=== PATIENT | male | born 1950 | race African-American/Black ===

== ENCOUNTER 2019-09-02 10:14 | Outpatient (CLI) | payer MEDICARE ==
--- NOTE | 2019-09-02 10:52 | MMO ---
Bilateral MAMMO Bilat Diag [facility]. CLINICAL HISTORY: Patient is 69 years old and is seen for diagnostic exam and lump or thickening in the right breast. The patient has no family history of breast cancer. The patient has no personal history of cancer. VIEWS: The views performed were: bilateral craniocaudal with tomosynthesis; bilateral mediolateral oblique with tomosynthesis; and bilateral mediolateral with tomosynthesis. FILMS COMPARED: The present examination has been compared to a prior imaging study performed at [facility] on 09/02/2019. This study has been interpreted with the assistance of computer-aided detection. MAMMOGRAM FINDINGS: There is a small amount of fibroglandular tissue in the right retroaerolar breast consistent with gynecomastia. US shows no mass. Benign calcifications are noted bilaterally. A loop recorder is seen on the left. There are no suspicious masses, suspicious calcifications, or new areas of architectural distortion. IMPRESSION: THERE IS NO MAMMOGRAPHIC EVIDENCE OF MALIGNANCY. THE RESULTS OF THIS EXAM WERE SENT TO THE PATIENT. ACR BI-RADS Category 2 - Benign finding MAMMOGRAPHY NOTE: 1. A negative mammogram report should not delay a biopsy if a dominant of clinically suspicious mass is present. 2. Approximately 10% to 15% of breast cancers are not detected by mammography. 3. Adenosis and dense breasts may obscure an underlying neoplasm. Reported by: GAURANG PUCKETT MD Electonically Signed: [id number]
--- NOTE | 2019-09-02 12:22 | ULT ---
RIGHT BREAST ULTRASOUND: Date: 09/02/2019 HISTORY: 69-year-old male with palpable abnormality in the retroareolar region of the right breast. FINDINGS: Correlation is made with mammograms from same date. No mass is seen in the region of the palpable abnormality in the retroareolar aspect of the right gary ast. IMPRESSION: BI-RADS Category 2 - Benign findings.
== END 2019-09-02 10:15 | disposition home or self-care (01) ==
LOC: BICMAMMO 10:14
PROVIDERS: ATTEND Family Medicine
DX: N63.10 Unspecified lump in the right breast, unspecified quadrant (principal); R92.8 Other abnormal and inconclusive findings on diagnostic imaging of breast
CPT/HCPCS: 76642; 77066; G0279

== ENCOUNTER 2019-10-14 01:54 | Emergency (ER) | payer MEDICARE ==
[2019-10-14 03:02] LABS: Bilirubin Negative (Negative); Blood, Urine Negative (Negative); Clarity Clear (Clear); Glucose, Urine (Dipstick) Normal (Negative); Leukocyte Negative Leu/uL (Negative); Nitrite Negative (Negative); Protein, Urine (Dipstick) Negative (Neg-Trace); Urobilinogen Normal mg/dL (Less than 2)
== END 2019-10-14 03:30 | disposition home or self-care (01) ==
LOC: ERS 01:54
DX: R33.9 Retention of urine, unspecified (principal); I10 Essential (primary) hypertension; E78.5 Hyperlipidemia, unspecified; Z79.899 Other long term (current) drug therapy; Z79.891 Long term (current) use of opiate analgesic
CPT/HCPCS: 51701; 81003; 87086

== ENCOUNTER 2020-06-20 06:45 | Outpatient (CLI) | payer MEDICARE ==
[2020-06-20 14:23] LABS: Bilirubin Neg (Negative); Blood, Urine Negative (Negative); Clarity Clear (Clear); Glucose, Urine (Dipstick) Normal (Negative); Ketone, Urine 5 mg/dL (Negative); Leukocyte 25 (Negative); Nitrite Negative (Negative); Protein, Urine (Dipstick) 15 mg/dl (Neg-Trace); Specific Gravity, Urine 1.025 (1.002-1.036)
[2020-06-20 14:24] LABS: #Eosinphils 0.1 10x3/uL (0.0-0.5); #Monocytes 0.5 10x3/uL (0.0-1.1); #Neutrophils 2.4 10x3/uL (1.5-8.4); %Basophils 0.5 % (0.0-2.0); %Eosinophils 2.9 % (0.0-6.0); %Lymphocytes 19.4 % (18.0-47.0); %Monocytes 13.8 % (0.0-10.0); %Neutrophils 62.6 % (40.0-75.0); Hemoglobin 10.9 g/dL (14.0-18.0); Mean Corpuscular Hemoglobin 27.8 PG (27.0-33.0); Mean Corpuscular Volume 84.2 fl (80.0-100.0); Mean Platelet Volume 10.5 fl (7.4-10.4); Platelet Count 197 10x3/uL (130-400); RBC Distribution Width 14.2 % (11.5-14.5); Red Blood Cell (RBC) Count 3.92 10x6/uL (4.40-5.80); White Blood Cell (WBC) Count 3.8 10x3/uL (4.5-11.0)
[2020-06-20 14:36] LABS: Anion Gap 14 mmol/L (10-20); BUN (Urea Nitrogen) 28 mg/dL (8.4-25.7); Calc. Creatinine Clearance 0 mL/min (70-130); Calcium 9.7 mg/dL (7.8-10.44); Carbon Dioxide 22 mmol/L (23-31); Chloride 107 mmol/L (98-107); Glucose 125 mg/dL (80-115); INR-International Normal Ratio 1.1; Prothrombin Time 11.4 sec (9.5-12.1); Sodium 139 mmol/L (136-145)
[2020-06-20 14:38] LABS: Bacteria/HPF Rare-Few HPF (None Seen); Mucous/LPF 1+ LPF (<2+); RBC/HPF 0-3 HPF (0-3)
[2020-06-21 00:18] LABS: SARS-CoV-2 MS2 Positive; SARS-CoV-2 N Gene Negative; SARS-CoV-2 S Gene Negative; SARS-CoV-2 by NAA Not Detected (NotDetected); SARS-CoV-2 orf1ab Negative
== END 2020-06-20 06:46 | disposition home or self-care (01) ==
LOC: LABBT 06:45
PROVIDERS: ATTEND Orthopaedic Surgery
DX: Z01.818 Encounter for other preprocedural examination (principal); M17.0 Bilateral primary osteoarthritis of knee; Z20.828 Contact with and (suspected) exposure to other viral communicable diseases
CPT/HCPCS: 80048; 81001; 85025; 85610; 87081; 93005; U0003; 87635; 93010

== ENCOUNTER 2020-08-13 05:34 | Day surgery (SDC) | payer MEDICARE ==
[2020-06-19 12:19] VITALS: BMI 33.0
[2020-08-13] MEDS ORDERED: Bupivacaine PF 0.5% 30 ML VIAL ONE (06:30)
[2020-08-13] MEDS ORDERED: methylPREDNISolone Acetate 40 mg/ml Vial ONE (06:30)
[2020-08-13] MEDS ORDERED: Lidocaine 1% (PF) 30 ML VIAL ONE (06:30)
[2020-08-13] MEDS ORDERED: Fentanyl 100 MCG/2 ML VIAL ONE ×3 (06:48→10:08)
[2020-08-13] MEDS ORDERED: Midazolam HCl 2 mg/2 ml Vial ONE (07:01)
[2020-08-13] MEDS ORDERED: Tranexamic Acid 1,000 MG/10 ML VIAL ONE (07:02)
[2020-08-13] MEDS ORDERED: Sodium Chloride 0.9% 0 ML ONE (07:02)
[2020-08-13] MEDS ORDERED: Vancomycin 1.5 GRAM/300 ML BAG ONE (07:03)
[2020-08-13] MEDS ORDERED: Sodium Chloride 0.9% 100 ML ONE (07:03)
[2020-08-13] MEDS ORDERED: Ondansetron PF 4 MG/2 ML Vial IVP PRN ×2 (07:14→07:45)
[2020-08-13] MEDS ORDERED: diphenhydrAMINE 25 MG CAP PO PRN (07:14)
[2020-08-13] MEDS ORDERED: Zolpidem Tartrate 5 MG TAB PO PRN ×2 (07:14→07:45)
[2020-08-13] MEDS ORDERED: HYDROcodone/Acetaminophen 10/325 mg Tablet PO PRN ×3 (07:14→07:45)
[2020-08-13] MEDS ORDERED: Acetaminophen 325 MG TAB PO PRN (07:14)
[2020-08-13] MEDS ORDERED: Promethazine HCl 25 MG/ML VIAL IM PRN ×2 (07:14→07:45)
[2020-08-13] MEDS ORDERED: traMADol HCl 50 MG TAB PO PRN ×2 (07:14→07:45)
[2020-08-13] MEDS ORDERED: Fentanyl 100 MCG/2 ML VIAL SLOW IVP PRN (07:14)
[2020-08-13] MEDS ORDERED: Tranexamic Acid 1,000 MG in Sodium Chloride 0.9% 100 ML IVPB SCH (07:15)
[2020-08-13] MEDS ORDERED: traZODone HCl 50 MG TAB PO PRN (07:33)
[2020-08-13] MEDS ORDERED: Ropivacaine HCl/PF 250 ML in Premix Bag 1 BAG NERVE BLCK SCH (07:45)
--- NOTE | 2020-08-13 09:51 | OP ---
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 PREOPERATIVE DIAGNOSIS: Bilateral knee arthritis, left worse than right. POSTOPERATIVE DIAGNOSIS: Bilateral knee arthritis, left worse than right. PROCEDURES: 1. Left total knee replacement done using Gayathri pinless navigation. 2. Right knee corticosteroid injection. ANESTHESIA: General anesthetic. BLOOD LOSS: Minimal. COMPLICATIONS: None. TOURNIQUET TIME: DISPOSITION: Recovery room in stable condition. IMPLANTS: To the left knee include a Gayathri Triathlon total knee. The femur was a size 6 cruciate retaining femur. We used a size 6 primary tibial baseplate. We used a 6 x 9 mm CS-X3 tibial poly and a 29 x 9 X3 patella. He did go to recovery room in stable condition. INDICATIONS: Mr. Hollis is a very active male, who comes in complaining of years of bilateral knee pain with the left being worse than the right. He has tried all nonoperative treatment to include injections, physical therapy, oral medicines, and unfortunately has failed all of these. At this time, he wished to have the left knee replaced and the right knee injected under anesthesia so he could get some temporary relief postop. PROCEDURE IN DETAIL: After all appropriate consent forms were explained and signed, Mr. Hollis was taken back to the operating room and at this time was given general anesthetic. Once the level of anesthesia was appropriate, the right knee was cleaned off with alcohol and a mixture of 80 mg of Depo-Medrol with local was injected into the right knee without complication. A Band-Aid was applied. We then turned our attention to the left lower extremity. After all appropriate consent forms were explained and signed, the patient was taken back to the operating room and at this time was given general anesthetic. Once the level of anesthesia was appropriate, a well-padded tourniquet was placed on the left leg, and the leg was then prepped and draped in standard surgical fashion. The limb was exsanguinated and tourniquet taken up to 300 mmHg. Midline incision was made with a 10 blade down through the skin and subcutaneous tissue. Bovie electrocautery was used to coagulate any brisk venous bleeding. A new blade was used to make a medial parapatellar arthrotomy. Small subperiosteal release was performed medially and excess fat pad was removed. The knee was flexed up to gain access to the femur. The femur was navigated and distal femoral resection was made. Epicondylar access was used to align our sizing jig and this was pinned in place. We sized our femur to be a 6 cruciate retaining femur. 4:1 cutting block was applied and pinned. Anterior and posterior chamfer cuts were then made. We navigated out our proximal tibia and made our proximal tibial resection. Spreaders were used to remove any posterior osteophytes off the back of the femur as well as remaining meniscal tissue. A long alignment josé miguel was then used to achieve correct rotation of our tibial baseplate and a size 6 was chosen. This was pinned in place. We trialed the polyethylene and a 6 x 9 mm CS-X3 polyethylene gave us full extension and good stability throughout range of motion. Two towel clips and a saw were used to cut our patella. Three lug nuts were drilled and 29 x 9 X3 patella was trialed which sat nicely in the trochlear groove. We then drilled our femur and punched our tibia. All components were removed. The knee was thoroughly irrigated and dried. Cement was mixed into the cement gun on the back table. Components were then placed. The knee was held out in full extension until the cement had dried. All excess bone cement was removed. Multiple #2 Vicryl stitches as well as a Quill were used to close our extensor mechanism. 0 Quill followed by a running Monoderm was then used to close the skin. Surgicel glue was then used on the skin. Once this had dried, soft tissue dressing was applied to the limb, tourniquet was let down, and the toes pinked up nicely. The patient was then awakened and taken to the recovery room in stable condition. All counts were correct at the end of the case. The patient did receive preoperative IV antibiotics. Job ID: [id number]
[2020-08-13] MEDS ORDERED: Glycopyrrolate 0.2 MG/ML 5 ML SYRINGE ONE (10:43)
[2020-08-13] MEDS ORDERED: ePHEDrine 50 MG/ML VIAL ONE (10:43)
[2020-08-13] MEDS ORDERED: PROPOFOL 200 MG/20 ML VIAL ONE (10:43)
[2020-08-13] MEDS ORDERED: Ropivacaine 2% HCl/PF (20 MG/10 ML VIAL) ONE (10:43)
[2020-08-13] MEDS ORDERED: Ondansetron PF 4 MG/2 ML Vial ONE (10:43)
[2020-08-13] MEDS ORDERED: Rocuronium Bromide 10 MG/ML (10ML VIAL) ONE (10:43)
[2020-08-13] MEDS ORDERED: Dexamethasone 20 MG/5 ML VIAL ONE (10:43)
[2020-08-13] MEDS ORDERED: Bupivacaine HCl 0.5%/Epinephrine 1:200,000/PF 30 ml Vial ONE (10:43)
[2020-08-13] MEDS ORDERED: Ketorolac Tromethamine 30 MG/ML VIAL IVP SCH (12:00)
[2020-08-13] MEDS: Fentanyl 100 MCG/2 ML VIAL IV PRN (12:38)
[2020-08-13] MEDS: Sodium Chloride 0.9% 1,000 ML IV SCH ×2 (12:59→21:45)
[2020-08-13] MEDS: Amlodipine 10 MG TAB PO SCH (13:00)
[2020-08-13] MEDS: Carvedilol 25 MG TAB PO SCH ×2 (13:00→21:39)
[2020-08-13] MEDS: Aspirin 81 mg Enteric Coated Tablet PO SCH ×2 (13:00→21:39)
[2020-08-13] MEDS: Amiodarone 200 MG TAB PO SCH (13:00)
[2020-08-13] MEDS: CeleCOXIB 100 MG CAP PO SCH (13:10)
[2020-08-13] MEDS: Oxybutynin 5 MG TAB PO SCH ×2 (13:11→21:41)
[2020-08-13] MEDS: Senokot S 8.6-50 MG TAB PO SCH ×2 (13:11→21:39)
[2020-08-13] MEDS: Losartan 25 MG TAB PO SCH (13:11)
[2020-08-13] MEDS: Multivitamin W/ Minerals 1 TAB PO SCH (13:11)
[2020-08-13] MEDS: Tamsulosin HCl 0.4 MG CAP PO SCH (13:11)
[2020-08-13] MEDS: Ferrous Gluconate 324 MG TAB PO SCH ×2 (13:11→21:39)
[2020-08-13] MEDS: CEFAZOLIN 2 GM in Premix Bag 1 BAG IVPB SCH ×2 (15:07→23:32)
[2020-08-13] MEDS: HYDROcodone/Acetaminophen 10/325 mg Tablet PO PRN ×2 (17:14→23:32)
[2020-08-13] MEDS ORDERED: Vancomycin 1.5 GRAM/300 ML BAG 1.5 GM in Premix Bag 1 BAG IVPB SCH (19:00)
[2020-08-13] MEDS ORDERED: Vancomycin HCl 1.5 GM in Sodium Chloride 0.9% 250 ML 300 ML IVPB SCH (19:00)
[2020-08-13] MEDS: traMADol HCl 50 MG TAB PO PRN (20:58)
[2020-08-13] MEDS: Atorvastatin Calcium 40 MG TAB PO SCH (21:40)
[2020-08-14] MEDS: hydrALAZINE 20 MG/ML VIAL SLOW IVP PRN ×2 (00:41→11:33)
[2020-08-14] MEDS: HYDROcodone/Acetaminophen 10/325 mg Tablet PO PRN (06:03)
[2020-08-14] MEDS: Sodium Chloride 0.9% 1,000 ML IV SCH ×3 (06:14→23:18)
[2020-08-14 06:16] LABS: Hemoglobin 10.3 g/dL (14.0-18.0); Mean Corpuscular HGB CONC 33.8 g/dL (32.0-36.0); Mean Corpuscular Hemoglobin 28.4 pg (27.0-31.0); Mean Corpuscular Volume 84.1 fL (78.0-98.0); Mean Platelet Volume 7.8 fL (7.4-10.4); Platelet Count 190 thou/uL (130-400); RBC Distribution Width 13.2 % (11.5-14.5); Red Blood Cell (RBC) Count 3.61 mill/uL (4.70-6.10); White Blood Cell (WBC) Count 8.2 thou/uL (4.8-10.8)
[2020-08-14] MEDS: CeleCOXIB 100 MG CAP PO SCH (07:45)
[2020-08-14] MEDS: traMADol HCl 50 MG TAB PO PRN (07:45)
[2020-08-14] MEDS: Senokot S 8.6-50 MG TAB PO SCH ×2 (07:46→20:59)
[2020-08-14] MEDS: Carvedilol 25 MG TAB PO SCH ×2 (07:47→20:26)
[2020-08-14] MEDS: Tamsulosin HCl 0.4 MG CAP PO SCH (07:47)
[2020-08-14] MEDS: Losartan 25 MG TAB PO SCH (07:47)
[2020-08-14] MEDS: Amlodipine 10 MG TAB PO SCH (07:48)
[2020-08-14] MEDS: Multivitamin W/ Minerals 1 TAB PO SCH (07:48)
[2020-08-14] MEDS: Oxybutynin 5 MG TAB PO SCH ×2 (07:48→20:26)
[2020-08-14] MEDS: Ferrous Gluconate 324 MG TAB PO SCH ×2 (07:48→20:26)
[2020-08-14] MEDS: Amiodarone 200 MG TAB PO SCH (07:48)
[2020-08-14] MEDS: Aspirin 81 mg Enteric Coated Tablet PO SCH ×2 (07:49→20:26)
--- NOTE | 2020-08-14 08:27 | PRG ---
DATE OF SERVICE: 08/14/2020 SUBJECTIVE: Kerwin is a 70-year-old male postop day 1 from a left total knee arthroplasty. He is doing relatively well. He does complain of pain. OBJECTIVE: VITAL SIGNS: Temperature 98.1, pulse 72, respiratory rate 14 and nonlabored, blood pressure is 177/83. GENERAL: He is alert and oriented to person, place, time, and situation. Responsive and appropriate with examiner. EXTREMITIES: Incision is clean without any erythema or strikethrough. He is neurovascularly intact in left lower extremity. LABORATORY DATA: Hemoglobin and hematocrit 10.3 and 30.3. IMPRESSION: A 70-year-old male postop day 1 left total knee arthroplasty, doing well except with some pain. PLAN: We will go in dosing with some Ultram now, make adjustments to his pain pump if needed. Re-consult the pain service for evaluation. Continue to observe for hemorrhage. Job ID: [id number]
[2020-08-14] MEDS: Fentanyl 100 MCG/2 ML VIAL IV PRN (10:30)
[2020-08-14] MEDS ORDERED: fentaNYL Citrate/PF 2,000 MCG in Sodium Chloride 0.9% 60 ML IV PRN (11:00)
[2020-08-14] MEDS: Acetaminophen 500 MG TAB PO SCH ×3 (12:38→23:14)
[2020-08-14] MEDS: Atorvastatin Calcium 40 MG TAB PO SCH (20:26)
[2020-08-15] MEDS: Acetaminophen 500 MG TAB PO SCH (05:24)
[2020-08-15 06:46] LABS: Hemoglobin 9.6 g/dL (14.0-18.0); Mean Corpuscular HGB CONC 33.9 g/dL (32.0-36.0); Mean Corpuscular Hemoglobin 28.7 pg (27.0-31.0); Mean Corpuscular Volume 84.6 fL (78.0-98.0); Mean Platelet Volume 7.8 fL (7.4-10.4); Platelet Count 179 thou/uL (130-400); RBC Distribution Width 13.3 % (11.5-14.5); Red Blood Cell (RBC) Count 3.33 mill/uL (4.70-6.10); White Blood Cell (WBC) Count 8.4 thou/uL (4.8-10.8)
[2020-08-15] MEDS ORDERED: HYDROcodone/Acetaminophen 10/325 mg Tablet PO PRN (08:39)
[2020-08-15] MEDS: Tamsulosin HCl 0.4 MG CAP PO SCH (08:48)
[2020-08-15] MEDS: Senokot S 8.6-50 MG TAB PO SCH (08:48)
[2020-08-15] MEDS: Oxybutynin 5 MG TAB PO SCH (08:49)
[2020-08-15] MEDS: Multivitamin W/ Minerals 1 TAB PO SCH (08:49)
[2020-08-15] MEDS: CeleCOXIB 100 MG CAP PO SCH (08:49)
[2020-08-15] MEDS: Losartan 25 MG TAB PO SCH (08:49)
[2020-08-15] MEDS: Ferrous Gluconate 324 MG TAB PO SCH (08:49)
[2020-08-15] MEDS: Aspirin 81 mg Enteric Coated Tablet PO SCH (08:50)
[2020-08-15] MEDS: Carvedilol 25 MG TAB PO SCH (08:50)
[2020-08-15] MEDS: HYDROcodone/Acetaminophen 10/325 mg Tablet PO PRN ×2 (08:50→13:47)
[2020-08-15] MEDS: Amlodipine 10 MG TAB PO SCH (08:50)
[2020-08-15] MEDS: Amiodarone 200 MG TAB PO SCH (08:50)
[2020-08-15] MEDS: Sodium Chloride 0.9% 1,000 ML IV SCH (09:14)
[2020-08-15 12:13] VITALS: BP 127/68; TEMP 97.8
== END 2020-08-15 14:17 | disposition home or self-care (01) ==
LOC: SDC 05:34 → SJJU 07:14 → SDC 08-15 14:17
PROVIDERS: ATTEND Orthopaedic Surgery
PROC: 3E0U33Z Introduction of Anti-inflammatory into Joints, Percutaneous Approach (ICD-10-PCS; principal; 2020-08-13)
PROC: 0SRD0J9 Replacement of Left Knee Joint with Synthetic Substitute, Cemented, Open Approach (ICD-10-PCS; 2020-08-13)
PROC: 8E0YXBZ Computer Assisted Procedure of Lower Extremity (ICD-10-PCS; 2020-08-13)
DX: M17.0 Bilateral primary osteoarthritis of knee (principal); Z79.899 Other long term (current) drug therapy; Z91.040 Latex allergy status; Z90.49 Acquired absence of other specified parts of digestive tract
CPT/HCPCS: 20610; 20985; 27447; 85027; 97110 ×2; 97116 ×3; 97139 ×4; 97530 ×2; C1713; C1776; J3010; 36415; J0360; J0690; J1100; J1885; J2001; J2250; J2405; J2704; J2795; J2920; J3370; J3490; J7050; S0020

== ENCOUNTER 2022-08-27 09:09 | Outpatient (CLI) | payer MEDICARE | END 2022-08-27 09:10 | disposition home or self-care (01) | LOC: LABBT 09:09 | PROVIDERS: ATTEND Orthopaedic Surgery | DX: Z01.818 Encounter for other preprocedural examination (principal); M17.11 Unilateral primary osteoarthritis, right knee | CPT/HCPCS: 71046; 80048; 81003; 85025; 85610; 86850; 86900; 86901; 87081; 93005; 93010 ==

== ENCOUNTER 2023-02-04 09:12 | Outpatient (CLI) | payer MEDICARE | END 2023-02-04 09:13 | disposition home or self-care (01) | LOC: LABBT 09:12 | PROVIDERS: ATTEND Orthopaedic Surgery | DX: Z01.818 Encounter for other preprocedural examination (principal); M17.11 Unilateral primary osteoarthritis, right knee | CPT/HCPCS: 71046; 93005; 93010 ==

== ENCOUNTER 2023-02-09 06:53 | Observation (INO) | payer MEDICARE ==
[2023-02-04 10:04] VITALS: BMI 33.0
[2023-02-04 10:56] LABS: Bilirubin Neg (Negative); Blood, Urine Negative (Negative); Clarity Clear (Clear); Glucose, Urine (Dipstick) Normal (Negative); Ketone, Urine Negative (Negative); Leukocyte Negative (Negative); Nitrite Negative (Negative); Protein, Urine (Dipstick) 15 mg/dl (Neg-Trace); Urobilinogen Normal mg/dL (Less than 2)
[2023-02-04 11:01] LABS: #Eosinphils 0.1 10x3/uL (0.0-0.5); #Monocytes 0.7 10x3/uL (0.0-1.1); #Neutrophils 2.5 10x3/uL (1.5-8.4); %Basophils 0.2 % (0.0-2.0); %Eosinophils 2.9 % (0.0-6.0); %Lymphocytes 19.3 % (18.0-47.0); %Monocytes 17.1 % (0.0-10.0); Mean Corpuscular HGB CONC 32.4 g/dL (32.0-36.0); Mean Corpuscular Hemoglobin 27.4 pg (27.0-33.0); Mean Corpuscular Volume 84.5 fl (81.2-95.1); Mean Platelet Volume 10.4 fl (7.4-10.4); Platelet Count 192 10x3/uL (150-450); RBC Distribution Width 14.5 % (11.5-14.5); Red Blood Cell (RBC) Count 4.38 10x6/uL (4.32-5.72); White Blood Cell (WBC) Count 4.2 10x3/uL (3.5-10.5)
[2023-02-04 11:14] LABS: Prothrombin Time 10.9 sec (9.5-12.1)
[2023-02-04 11:22] LABS: Anion Gap 15 mmol/L (10-20); BUN (Urea Nitrogen) 22 mg/dL (8.4-25.7); Calc. Creatinine Clearance 0 mL/min (70-130); Calcium 9.3 mg/dL (7.8-10.44); Carbon Dioxide 24 mmol/L (23-31); Chloride 105 mmol/L (98-107); Estimated GFR 68; Glucose 103 mg/dL (83-110); Potassium 3.9 mmol/L (3.5-5.1); Sodium 140 mmol/L (136-145)
[2023-02-09] MEDS ORDERED: Vancomycin (BATCH) 1.5 GRAM/300 ML BAG ONE (07:40)
[2023-02-09] MEDS ORDERED: Tranexamic Acid 1,000 MG/10 ML VIAL ONE ×2 (07:41→13:00)
[2023-02-09] MEDS ORDERED: Sodium Chloride 0.9% 100 ML ONE ×2 (07:41→09:17)
[2023-02-09] MEDS ORDERED: Lidocaine 1% MPF 2 ML VIAL ONE (07:59)
[2023-02-09] MEDS ORDERED: fentaNYL 50 mcg/mL 1 mL Vial ONE ×8 (08:04→12:58)
[2023-02-09] MEDS ORDERED: Midazolam HCl 2 mg/2 ml Vial ONE (08:04)
[2023-02-09] MEDS ORDERED: Bupivacaine PF 0.5% 30 ML VIAL ONE (08:05)
[2023-02-09] MEDS ORDERED: CEFAZOLIN 2 GM VIAL ONE (09:17)
[2023-02-09] MEDS ORDERED: fentaNYL 50 mcg/mL 1 mL Vial SLOW IVP PRN (09:18)
[2023-02-09] MEDS ORDERED: Famotidine/PF 20 mg/2ml Vial ONE (09:28)
[2023-02-09] MEDS ORDERED: Vasopressin 20 UNITS/ML VIAL ONE (09:28)
[2023-02-09] MEDS ORDERED: traMADol HCl 50 MG TAB PO PRN ×2 (09:30)
[2023-02-09] MEDS ORDERED: Promethazine HCl 25 MG/ML VIAL IM PRN ×3 (09:30→11:31)
[2023-02-09] MEDS ORDERED: Zolpidem Tartrate 5 MG TAB PO PRN ×2 (09:30→11:30)
[2023-02-09] MEDS ORDERED: Ondansetron PF 4 MG/2 ML Vial IVP PRN ×2 (09:30→11:30)
[2023-02-09] MEDS ORDERED: Ropivacaine 0.2% 550 ML 550 ML NERVE BLCK SCH (09:30)
[2023-02-09] MEDS ORDERED: HYDROcodone/Acetaminophen 10/325 mg Tablet PO PRN ×2 (09:30)
[2023-02-09] MEDS ORDERED: Bupivacaine 0.25% HCL 30 ML VIAL ONE (09:34)
[2023-02-09] MEDS ORDERED: Lidocaine 1% PF 5 ML VIAL ONE (09:42)
[2023-02-09] MEDS ORDERED: Ondansetron PF 4 MG/2 ML Vial ONE (09:42)
[2023-02-09] MEDS ORDERED: Ketorolac Tromethamine 30 MG/ML VIAL ONE (09:42)
[2023-02-09] MEDS ORDERED: PROPOFOL 200 MG/20 ML VIAL ONE (09:42)
[2023-02-09] MEDS ORDERED: Dexamethasone 20 MG/5 ML VIAL ONE (09:42)
[2023-02-09] MEDS ORDERED: Ropivacaine 0.5% HCl/PF (150 MG/30 ML VIAL) ONE (10:13)
[2023-02-09] MEDS ORDERED: Vancomycin HCl 1.5 GM in Sodium Chloride 0.9% 250 ML 300 ML IVPB SCH (11:30)
[2023-02-09] MEDS ORDERED: diphenhydrAMINE 25 MG CAP PO PRN (11:30)
[2023-02-09] MEDS ORDERED: Tranexamic Acid 1,000 MG in Sodium Chloride 0.9% 100 ML IVPB SCH (11:30)
[2023-02-09] MEDS ORDERED: Acetaminophen 325 MG TAB PO PRN (11:30)
[2023-02-09] MEDS ORDERED: Ondansetron HCl/PF 4 MG/2 ML Vial IVP PRN (11:31)
[2023-02-09] MEDS: Ketorolac Tromethamine 30 MG/ML VIAL IVP SCH ×3 (12:10→23:11)
[2023-02-09] MEDS ORDERED: HYDROmorphone 0.5 MG/0.5 ML SYRINGE ONE (13:52)
[2023-02-09] MEDS ORDERED: Vancomycin 1.5 GRAM/300 ML BAG 1.5 GM in Premix Bag 1 BAG IVPB SCH (14:00)
[2023-02-09] MEDS: Sodium Chloride 0.9% 1,000 ML IV SCH (15:00)
[2023-02-09] MEDS: CEFAZOLIN 2 GM in Sodium Chloride 0.9% 100 ML IVPB SCH (17:33)
[2023-02-09] MEDS: Ferrous Gluconate 324 MG TAB PO SCH (20:36)
[2023-02-09] MEDS: Carvedilol 25 MG TAB PO SCH (20:37)
[2023-02-09] MEDS: Aspirin 81 mg Enteric Coated Tablet PO SCH (20:37)
[2023-02-09] MEDS: cloNIDine 0.1 MG TAB PO SCH (20:37)
[2023-02-09] MEDS: Senokot S 8.6-50 MG TAB PO SCH (20:37)
[2023-02-10] MEDS: CEFAZOLIN 2 GM in Sodium Chloride 0.9% 100 ML IVPB SCH (03:05)
[2023-02-10] MEDS: Sodium Chloride 0.9% 1,000 ML IV SCH ×2 (03:10→09:28)
[2023-02-10] MEDS: Ketorolac Tromethamine 30 MG/ML VIAL IVP SCH ×2 (05:23→12:04)
[2023-02-10 05:31] LABS: Hematocrit 30.4 % (42.0-52.0); Mean Corpuscular HGB CONC 32.9 g/dL (32.0-36.0); Mean Corpuscular Hemoglobin 27.9 pg (27.0-31.0); Mean Corpuscular Volume 84.7 fl (78.0-98.0); Mean Platelet Volume 9.8 fL (7.4-10.4); Platelet Count 158 10x3/uL (130-400); RBC Distribution Width 14.1 % (11.5-14.5); Red Blood Cell (RBC) Count 3.59 mill/uL (4.70-6.10); White Blood Cell (WBC) Count 9.1 10x3/uL (4.8-10.8)
[2023-02-10] MEDS ORDERED: Amlodipine 10 MG TAB PO SCH (09:00)
[2023-02-10] MEDS ORDERED: Valsartan 80 MG TAB PO SCH (09:00)
[2023-02-10] MEDS ORDERED: Tamsulosin HCl 0.4 MG CAP PO SCH (09:00)
[2023-02-10] MEDS ORDERED: Multivitamin W/ Minerals 1 TAB PO SCH (09:00)
[2023-02-10] MEDS ORDERED: Oxybutynin ER 5 MG TAB PO SCH (09:00)
[2023-02-10] MEDS ORDERED: Hydrochlorothiazide 25 MG TAB PO SCH (09:00)
[2023-02-10] MEDS: Carvedilol 25 MG TAB PO SCH (09:24)
[2023-02-10] MEDS: cloNIDine 0.1 MG TAB PO SCH (09:24)
[2023-02-10] MEDS: Ferrous Gluconate 324 MG TAB PO SCH (09:24)
[2023-02-10] MEDS: Aspirin 81 mg Enteric Coated Tablet PO SCH (09:25)
[2023-02-10] MEDS: Senokot S 8.6-50 MG TAB PO SCH (09:25)
[2023-02-10 11:58] VITALS: BP 130/63; TEMP 98.3
[2023-02-10] MEDS ORDERED: Ropivacaine 0.5% HCl/PF (150 MG/30 ML VIAL) ONE ×2 (13:16→13:38)
[2023-02-10] MEDS ORDERED: Dexamethasone 4 mg/ml Vial ONE (13:16)
[2023-02-10] MEDS ORDERED: Dexamethasone 20 MG/5 ML VIAL ONE (13:38)
== END 2023-02-10 14:30 | disposition home or self-care (01) ==
LOC: SDC 06:53 → SURG B 11:30
PROVIDERS: ADMIT Orthopaedic Surgery; ATTEND Orthopaedic Surgery
PROC: 0SRC0JZ Replacement of Right Knee Joint with Synthetic Substitute, Open Approach (ICD-10-PCS; principal; 2023-02-09)
DX: M17.11 Unilateral primary osteoarthritis, right knee (principal); M21.061 Valgus deformity, not elsewhere classified, right knee; I10 Essential (primary) hypertension; E78.5 Hyperlipidemia, unspecified; Z91.040 Latex allergy status; Z79.899 Other long term (current) drug therapy
CPT/HCPCS: 27447; 80048; 81003; 85025; 85027; 85610; 86850; 86900; 86901; 87081; 97110 ×2; 97116 ×2; 97530; A4306; C1776; J3010; J3370; 36416; J1100; J1170; J1885; J2250; J2405; J2704; J2795; J3490; J7050; S0020; S0028